=== PATIENT | male | born 1940 | race Caucasian/White ===

== ENCOUNTER → 2018-06-11 07:46 | Outpatient (CLI) | payer MEDICARE, SELFPAY ==
[2018-06-11 09:59] LABS: Add Manual Diff / Slide Review NO; Basophils Percent Auto 0.5 % (0-2); Eosinophils Percent Auto 2.8 % (2-4); Hematocrit 41.2 % (41-53); Hemoglobin 13.9 g/dL (13.5-17.5); Lymphocytes Percent Auto 27.4 % (25-40); Mean Corpuscular HGB Conc 33.8 % (30-36); Mean Corpuscular Hemoglobin 33.9 PG (26-34); Mean Corpuscular Volume 100.4 fL (80-100); Monocytes Percent Auto 12.9 % (3-14); Neutrophils Absolute Auto 3100 /uL (3000-5900); Neutrophils Percent Auto 56.4 % (50-75); Platelet Count 253 X10^3/uL (150-400); Red Blood Cell Count 4.11 X10^6/uL (4.5-5.9); Red Cell Distribution Width 13.2 % (11.6-14.8); White Blood Cell Count 5.4 X10^3/uL (4.5-11.0)
[2018-06-11 10:06] LABS: Alanine Aminotransferase 30 IU/L (21-72); Albumin 4.6 g/dL (3.5-5.0); Albumin Globulin Ratio 1.6 (1.0-2.8); Alkaline Phosphatase 58 U/L (38-126); Aspartate Aminotransferase 29 IU/L (17-59); BUN Creatinine Ratio 38.6 (6-22); Bilirubin Total 0.7 mg/dL (0.2-1.3); Blood Urea Nitrogen 27 mg/dL (9-20); Calcium 9.7 mg/dL (8.4-10.2); Carbon Dioxide 28 mmol/L (22-32); Chloride 103 mmol/L (98-107); Cholesterol 190 mg/dL (140-199); Estimated Glomerular Filt Rate > 60.0 mL/min (>60); Globulin 2.9 g/dL (1.7-4.1); Glucose 91 mg/dL (80-110); HDL Cholesterol 98 mg/dL (40-60); HEMOLYSIS < 15 (0-50); LDL Cholesterol Calculated 64 mg/dL (<100); Potassium 4.5 mmol/L (3.4-5.1); Sodium 144 mmol/L (137-145); Total Protein 7.5 g/dL (6.3-8.2); Triglycerides 142 mg/dL (35-150)
[2018-06-11 10:32] LABS: Thyroid Stimulating Hormone 1.93 uIU/mL (0.47-4.68)
== END ==
PROVIDERS: PCP Family Medicine; Visit Provider Family Medicine
DX: I10 Essential (primary) hypertension (principal); Z00.00 Encounter for general adult medical examination without abnormal findings; E78.5 Hyperlipidemia, unspecified
CPT/HCPCS: 36415; 80053; 80061; 84443; 85025

== ENCOUNTER → 2018-10-10 10:58 | Outpatient (CLI) | payer MEDICARE, SELFPAY ==
--- NOTE | 2018-10-10 | DI.CT.S_ITS ---
PROCEDURE: CT CHEST WO CON INDICATIONS: LEFT LUNG NODULE TECHNIQUE: Noncontrast 5 mm thick sections acquired from the pulmonary apices to the posterior costophrenic angles. 7 mm thick coronal and sagittal MIP reformats were then acquired. For radiation dose reduction, the following was used: automated exposure control, adjustment of mA and/or kV according to patient size. COMPARISON: None. FINDINGS: Image quality: Excellent. Lungs and pleura: No acute consolidation. No acute consolidation. Scattered subsegmental atelectasis and/or scarring. No pleural effusions or pneumothorax. Central and peripheral airways are patent and normal in caliber. There are bilateral small calcified pleural plaques Mediastinum: Heart size is normal. Calcified coronary artery disease No pericardial effusion. No mediastinal adenopathy by size criteria. Thoracic aorta and central pulmonary arteries are normal in size. Esophagus is normal in caliber. No hiatal hernia. Bones and chest wall: No suspicious bony lesions. No vertebral body compression fractures. No axillary or supraclavicular adenopathy by size criteria. Thyroid gland negative. Abdomen: Visualized upper abdominal solid organs and bowel loops appear normal in the absence of contrast. IMPRESSION: Scattered small bilateral calcified pleural plaques raising the possibility of asbestos related pleural disease. No intraparenchymal lung nodule identified. Scattered atelectasis and scarring. No focal consolidation No hiatal hernia. Coronary artery disease. Dictated by: Vipul Chatman M.D. on 10/10/2018 at 12:15 Approved by: Vipul Chatman M.D. on 10/10/2018 at 12:20
== END ==
PROVIDERS: PCP Family Medicine; Visit Provider Family Medicine
DX: R91.1 Solitary pulmonary nodule (principal); I25.10 Atherosclerotic heart disease of native coronary artery without angina pectoris; J98.11 Atelectasis; J98.4 Other disorders of lung
CPT/HCPCS: 71250

== ENCOUNTER → 2019-06-28 09:56 | Outpatient (CLI) | payer MEDICARE, SELFPAY ==
--- NOTE | 2019-06-28 | DI.RAD.S_ITS ---
PROCEDURE: XR CHEST 2V INDICATIONS: DYSPNEA TECHNIQUE: 2 views of the chest were acquired. COMPARISON: [facility], CT, CT CHEST WO CON, 10/10/2018, 11:00. FINDINGS: Surgical changes and devices: None. Lungs and pleura: No pleural effusion or pneumothorax. There is elevation of the left hemidiaphragm. There are increased left perihilar linear opacities. There is prominence of the pulmonary vasculature bilaterally, similar to comparison CT of 10/10/18. Mediastinum: There is a broad rounded contour of the right hilar region. Heart size is normal. Bones and chest wall: Moderate multilevel degenerative changes of the thoracic spine. IMPRESSION: 1. Left perihilar linear opacities most consistent with atelectasis, with pneumonia thought less likely. 2. Prominent pulmonary vasculature bilaterally, right greater than left. Consider CT if there is continued clinical concern. Dictated by: Brenton Kim M.D. on 06/28/2019 at 14:06 Approved by: Brenton Kim M.D. on 06/29/2019 at 16:17
== END ==
PROVIDERS: PCP Family Medicine; Visit Provider Family Medicine
DX: R06.00 Dyspnea, unspecified (principal)
CPT/HCPCS: 71046

== ENCOUNTER → 2022-06-24 12:51 | Outpatient (CLI) | payer MEDICARE, SELFPAY ==
--- NOTE | 2022-06-24 | DI.CT.S_ITS ---
PROCEDURE: CT ABDOMEN PELVIS W CON INDICATIONS: Unspecified abdominal pain TECHNIQUE: After the administration of oral and IV contrast, axial sections were acquired from the lung bases to the pubic symphysis. Coronal and sagittal reformats were performed. For radiation dose reduction, the following was used: automated exposure control, adjustment of mA and/or kV according to patient size. COMPARISON: [facility], CT, ABDOMEN/PELVIS WITH CONTRAST, 07/20/2013, 8:41. FINDINGS: Image quality: Excellent. Lung bases: Left basilar scars and atelectasis. Calcified pleural plaques bilaterally. Mild gynecomastia. Heart: Heart size is normal. There is moderate coronary artery calcification. ABDOMEN: Liver: Normal size. Mild hepatic steatosis. Gallbladder: Unremarkable. Biliary ducts: Unremarkable. Pancreas: Punctate calcifications suggesting chronic pancreatitis. Spleen: Unremarkable. Adrenal Glands: Unremarkable. Kidneys and Ureters: There is a staghorn stone in left renal pelvis measuring 14 x 16 mm. There are parapelvic cysts. No hydronephrosis. Mild bilateral perinephric stranding. Stomach and Bowel: Stomach, small bowel loops, and colon are normal in caliber. Diverticulosis without acute diverticulitis Peritoneum: No abnormal intraperitoneal fluid. No free air. Ventral Wall: Small fat containing umbilical hernia. Abdominal Nodes: No retroperitoneal or mesenteric adenopathy by size criteria. Vessels: Aorta and inferior vena cava are normal in size. Moderate atherosclerotic calcifications. PELVIS: Pelvic Organs: Prostate is enlarged. Bladder: Unremarkable. Pelvic Nodes: No enlarged lymph nodes. Miscellaneous: Small fat containing inguinal hernias are seen. Bones: [id number] degenerative disc and facet disease in lumbar spine. IMPRESSION: 1. A 14 x 16 mm staghorn stone in left kidney. No hydronephrosis. 2. Parapelvic cysts in left kidney. 3. Bilateral perinephric stranding. 4. Chronic pancreatitis. 5. Diverticulosis without acute diverticulitis. 6. Calcified pleural plaques bilaterally. Recommend clinical correlation for asbestos exposure. 7. Enlarged prostate. Dictated by: Lorri Hanson M.D. on 06/25/2022 at 8:00 Approved by: Lorri Hanson M.D. on 06/25/2022 at 8:09
== END ==
PROVIDERS: PCP Family Medicine; Referring Provider Family Medicine; Visit Provider Family Medicine
DX: K86.1 Other chronic pancreatitis (principal); N20.0 Calculus of kidney; N28.1 Cyst of kidney, acquired; J92.9 Pleural plaque without asbestos; N40.0 Benign prostatic hyperplasia without lower urinary tract symptoms; R10.9 Unspecified abdominal pain; I25.10 Atherosclerotic heart disease of native coronary artery without angina pectoris; N62 Hypertrophy of breast; K57.90 Diverticulosis of intestine, part unspecified, without perforation or abscess without bleeding; K42.9 Umbilical hernia without obstruction or gangrene; M47.816 Spondylosis without myelopathy or radiculopathy, lumbar region; M51.36 Other intervertebral disc degeneration, lumbar region
CPT/HCPCS: 74177; Q9967